=== PATIENT | male | born 1980 | race Two or more races ===

== ENCOUNTER 2025-04-06 22:37 | Emergency (ER) | payer MEDICAID, SELFPAY ==
[2025-04-06 22:40] VITALS: BMI 27.4
[2025-04-06 23:22] VITALS: BP 134/82; PULSE 65; RESP 18; TEMP 36.6; O2SAT 97
--- NOTE | 2025-04-06 23:26 | XR_ITS ---
EXAMINATION: PA lateral chest 2 views TECHNIQUE: Upright PA and lateral chest 2 views Date and time: April 06, 2025, 11:21 p.m. INDICATIONS: Chest pain radiating to the back with shortness of breath 4 days. FINDINGS: Early pneumonia left lower lobe Normal heart size The osseous structures are intact IMPRESSION: Early pneumonia left lower lobe
--- NOTE | 2025-04-06 23:27 | PD.EDRME ---
Rapid Medical Screening Exam RME Arrival date/time: 04/06/25 22:37 45-year-old male no cardiac history reports with complaints of chest pain that radiates to the back and shortness of breath x 4 days Chief Complaint: Chest Pain Time Seen by Provider: 04/06/25 22:45 Vital signs: Vital Signs Temperature 97.9 F 04/06/25 23:22 Pulse Rate 65 04/06/25 23:22 Respiratory Rate 18 04/06/25 23:22 Blood Pressure 134/82 H 04/06/25 23:22 Pulse Oximetry (%) 97 04/06/25 23:22 Oxygen Delivery Method Room Air 04/06/25 23:22 Exam: - Clinical Impression: -
[2025-04-06 23:48] LABS: Basophils # (Auto) 0.0 Thou/mm3 (0.0-0.2); Basophils % (Auto) 0 % (0-2.5); Eosinophils # (Auto) 0.1 Thou/mm3 (0.0-0.5); Eosinophils % (Auto) 2 % (0-10); Hematocrit 39.7 % (41.0-53.0); Hemoglobin 13.4 g/dL (13.5-16.0); Immature Granulocytes Auto 0.01 Thou/mm3 (0.00-0.00); Lymphocytes # (Auto) 3.1 Thou/mm3 (1.0-4.8); Lymphocytes % (Auto) 35 % (10-50); Mean Corpuscular HGB Conc 33.8 g/dl (31.0-37.0); Mean Corpuscular Hemoglobin 29.7 pg (25.0-35.0); Mean Corpuscular Volume 88 fL (80-100); Monocytes # (Auto) 0.7 Thou/mm3 (0.0-0.8); Monocytes % (Auto) 8 % (0-12); Neutrophils # (Auto) 5.0 Thou/mm3 (1.8-7.7); Neutrophils % (Auto) 56 % (37-80); Nucleated Red Blood Cell # 0.00 Thou/mm3 (0.00-0.00); Nucleated Red Blood Cell % 0 /100 WBC (0); Platelet Count 210 Thou/mm3 (140-440); RDW Standard Deviation 38.2 fL (35.1-43.9); Red Blood Count 4.51 Miln/mm3 (4.50-5.90); White Blood Count 9.0 Thou/mm3 (3.8-10.6)
[2025-04-07] VITALS (8 sets, daily range): BP systolic 107–127; BP diastolic 70–87; PULSE 53–64; RESP 13–20; TEMP 36.6–37; O2SAT 96–100
[2025-04-07 00:09] LABS: Alanine Aminotransferase 19 U/L (10-49); Albumin, Serum 4.7 gm/dL (3.5-5.0); Albumin/Globulin Ratio 1.3 (1.2-2.2); Alkaline Phosphatase 89 U/L (46-116); Anion Gap 10 (7-16); Aspartate Amino Transferase 22 U/L (0-34); BUN/Creatinine Ratio 20 Ratio (12-20); Bilirubin,Total 0.3 mg/dL (0.3-1.2); Blood Urea Nitrogen 16 mg/dL (9-23); Calcium 9.4 mg/dL (8.3-10.6); Calcium (Corrected) 9.4 mg/dL (8.5-10.1); Carbon Dioxide 30.4 mMol/L (20.0-31.0); Chloride 104 mMol/L (98-107); Creatinine (Component) 0.8 mg/dL (0.6-1.3); Estimated Creatinine Clearance 114.0 mL/min (>60); Globulin 3.6 gm/dL (2.3-3.5); Glucose 82 mg/dL (74-106); Osmolality,Calculated 287 (275-295); Potassium 3.6 mMol/L (3.4-5.1); Sodium 144 mMol/L (136-145); Total Protein 8.3 gm/dL (5.7-8.2); eGFR > 60 See Note
[2025-04-07 00:29] LABS: Troponin I 0.061 ng/mL (0.0-0.045)
--- NOTE | 2025-04-07 00:31 | EKG_ITS ---
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
--- NOTE | 2025-04-07 01:11 | PD.EDCHEST ---
ED Chest Pain RME/HPI General Chief Complaint: Chest Pain Stated Complaint: R LUNG PAIN Time Seen by Provider: 04/06/25 22:45 Arrival date/time: 04/06/25 22:37 RME / HPI RME / HPI narrative: 04/06/25 22:37 45-year-old male no cardiac history reports with complaints of chest pain that radiates to the back and shortness of breath x [address] Martinez?s Main ED Evaluation: 45yo male presenting with intermittent right parasternal chest pain with pleuritic component x 4 days. Denies shortness of breath, N/V, fever, or chills. Reports occasional recent cough. Nonsmoker, occasional alcohol use. No PSH. Cardiac Risk Factors: No DM, HTN, tobacco use, family history of heart disease, ?HLD. PE Risk Factors: No prolonged travel, HRT, recent surgery, prior personal or family history of PE/DVT, tobacco use. Related Data Previous Rx's ?Medication ?Instructions ?Recorded acetaminophen 300 mg-codeine 15 mg 1 tab PO Q8H PRN pain #14 tabs 04/07/25 tablet azithromycin 250 mg tablet 250 mg PO QDAY pneumonia 5 days #6 04/07/25 (Zithromax Z-Nelson) tabs indomethacin 25 mg capsule 25 mg PO TID #10 caps 04/07/25 Allergies Allergy/AdvReac Type Severity Reaction Status Date / Time NKA* Allergy Uncoded 04/06/25 22:44 Review of Systems Review of Systems Systems Reviewed: All systems reviewed, normal except as documented ED Exam Narrative Physical exam: GENERAL APPEARANCE: alert and oriented x 4, well-developed, well-nourished, nontoxic, complains of pleuritic chest pain, no acute distress VITALS: All vitals were reviewed and the pulse ox is 97% on room air, which is normal according to my interpretation. HEENT: Normocephalic, atraumatic; pupils equal, round, reactive to light; EOMI; mucous membranes pink, moist; oropharynx clear NECK: Supple CHEST: mild tenderness to the right parasternal region without crepitus or step-off; no friction rub LUNGS: CTABL; no wheezes, no rales, no rhonchi HEART: Regular rate, regular rhythm; normal S1, S2; no murmurs ABDOMEN: non distended; soft, no tenderness BACK: no CVA tenderness EXTREMITIES: atraumatic; no edema; no calf tenderness NEUROLOGIC: awake; alert and oriented x4; cranial nerves II-XII grossly intact; no focal sensory or motor deficits PSYCHIATRIC: appropriate mood and affect SKIN: warm, dry, normal color; no rashes Course Course Course Narrative: CXR is ordered for determining the etiology of chest pain. Quality Measures none Orders Category Date Time Status Bedside COVID-19 Antigen Test NOW Care 04/06/25 23:26 Active Bedside Influenza A&B Antigen Test NOW Care 04/06/25 23:27 Completed EKG (ED ONLY) *Do not use* NOW Care 04/07/25 00:31 Completed EKG (ED ONLY) *Do not use* NOW Care 04/07/25 02:01 Completed IV [Insert IV] NOW Care 04/07/25 00:42 Active EKG (ED Only) Stat Exams 04/07/25 00:31 Draft EKG (ED Only) Stat Exams 04/07/25 02:00 Draft XR chest 2V Stat Exams 04/06/25 23:26 Completed CBC Stat Lab 04/06/25 23:36 Completed CMP [Comprehensive Metabolic Panel] Stat Lab 04/06/25 23:36 Completed Troponin I Stat Lab 04/06/25 23:36 Completed Troponin I Stat Lab 04/07/25 00:36 Completed Ketorolac Inj [Toradol Inj] Med 04/07/25 01:28 Discontinued 30 mg IVP X1 ONE Vital Signs Vital signs: Vital Signs Temperature 97.9 F 04/06/25 23:22 Pulse Rate 65 04/06/25 23:22 Respiratory Rate 18 04/06/25 23:22 Blood Pressure 134/82 H 04/06/25 23:22 Pulse Oximetry (%) 97 04/06/25 23:22 Oxygen Delivery Method Room Air 04/06/25 23:22 Chest Pain MDM Narrative MDM Narrative:: Scribe Attestation: 04/07/25 Fallon Quach am scribing for and in the presence of Dr. Martinez. 45yo male presenting with intermittent right parasternal chest pain with pleuritic component x 4 days. Denies shortness of breath, N/V, fever, or chills. Reports occasional recent cough. Please see PE findings. Labs demonstrated normal WBC count. Chemistries are unremarkable. Troponin demonstrated marginal elevation, essentially unchanged during serial troponin analysis from 0.6 to 0.59. Serial EKGs were also performed and demonstrate equivocal ST segment elevation which appears to be nonspecific, no reciprocal ST depression, ventricular ectopy, ?NE depression in the lateral leads, suggestive of pleural pericarditis. Patient treated with IV fluid, antibiotics, and IV NSAID with marked overall improvement. Patient remained stable and without respiratory insufficiency. Will discuss with cardiology for final disposition. Discussed with child support agent, Dr. Quevedo, who agrees to come and evaluate the patient here in the ED later this morning. Patient data External records reviewed:: [facility] previous records (Per chart review, patient has no previous ED visits or admissions to this facility.) Clinical information provided by:: patient Social determinants that could affect healthcare access:: none Patient has the following chronic illnesses:: none How is presenting disease/condition affected by chronic disease/condition?: no chronic disease Evaluation data The following diagnostics were reviewed and interpreted by me:: lab results, radiology exam(s) and EKG tracing(s) Lab and/or radiology exams considered but not ordered:: none Interpretation Summary: EKG done at 0048, sinus rhythm, rate of 62, nonspecific ST segment elevation, no reciprocal ST segment depression, NE depression in the lateral leads, ?pericarditis, normal axis, normal intervals, according to my interpretation. Repeat EKG done at 0234, sinus bradycardia, rate of 52, nonspecific ST segment elevation diffusely, ?NE depression in the lateral leads, no reciprocal ST segment depression, no ectopy, normal axis, normal intervals, according to my interpretation. [facility] Report Signed Patient: MITESH MCLEOD. Record#: [id number] Birthdate: 1980 Age/Sex: 45 / M Location: [facility] Attending Dr: Ordering Physician: Maicol Cherry PA-C Date of Service: 04/06/25 Procedure(s): XR chest 2V Accession Number(s): [id number] cc: Ned Collins MD; Maicol Cherry PA-C~ EXAMINATION: PA lateral chest 2 views TECHNIQUE: Upright PA and lateral chest 2 views Date and time: April 06, 2025, 11:21 p.m. INDICATIONS: Chest pain radiating to the back with shortness of breath 4 days. FINDINGS: Early pneumonia left lower lobe Normal heart size The osseous structures are intact IMPRESSION: Early pneumonia left lower lobe Dictated By: Ned Collins MD Signed By: <Electronically signed by Ned Collins MD in OV> 04/06/25 3939 Medications / Prescriptions Medications or Prescriptions considered but not ordered:: none Medication administrations:: Medication Administration History Discontinued Medications Ketorolac Tromethamine (Ketorolac Inj 30 Mg/Ml Vial) 30 mg IVP X1 ONE Stop: 04/07/25 01:29 Last Admin: 04/07/25 01:40 Dose: 30 mg Documented By: CB see above Consultations Consultation(s) initiated? (list below): Yes Diagnosis Chest Pain Differential Diagnosis: atypical chest pain, st elevation myocardial infarction, costochondritis and other (NSTEMI, pericarditis) Most likely diagnosis given after review of the tests above:: see clinical impression below Admission Indicated Admission indicated?: not indicated Admission Request Was there a request for admission?: No Disposition Plan Disposition Plan: other (specify) (Signed out to Dr. Carlson at [address] Quevedo.) Discharge Plan Plan Patient Disposition: HOME (Self Care) Discharge Disposition comment: stable Prescriptions/Referrals Prescriptions/Med Rec: New indomethacin 25 mg capsule 25 mg PO TID Qty: 10 0RF Rx Instructions: administer with food or milk acetaminophen-codeine 300-15 mg tablet 1 tab PO Q8H PRN (Reason: pain) Qty: 14 0RF azithromycin [Zithromax Z-Nelson] 250 mg tablet 250 mg PO QDAY 5 Days Qty: 6 0RF Rx Instructions: 2 tablets day 1 and then 1 tablet day 2 through 5 Referrals: Hari Bennett MD [Primary Care Provider, Family Practice] - In 1 week Problem List Clinical Impression: Pneumonia, Pericarditis Impression comment: Left lower lobe pneumonia/pericarditis Patient/Caregiver Discharge Instructions Discharge Activity: activity as tolerated Other Activity Instructions:: Maintain adequate rest Education Materials: ED Pericarditis, ED Pneumonia (Adult) Additional Instructions: Maintain adequate rest. Medication as directed. Follow-up with primary care/child support agent as indicated. Print Language: German Stand Alone Forms: [facility] Award Info., Patient Portal Info Letter
[2025-04-07] MEDS: KETOROLAC INJ 30 MG/ML VIAL IVP (01:40)
--- NOTE | 2025-04-07 02:00 | EKG_ITS ---
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
[2025-04-07 03:09] LABS: Troponin I 0.059 ng/mL (0.0-0.045)
--- NOTE | 2025-04-07 08:29 | ECHO_ITS ---
Patient Info Name: Floyd Jones Age: 45 years : 1980 Gender: Male Ht: 168 cm Wt: 77 kg BSA: 1.91 m2 BP: 124 / 83 mmHg HR: 63 bpm Exam Date: 04/07/2025 8:58 AM Admit Date: 04/06/2025 Site: Room Number: ER Patient Status: E Exam Type: CA echo doppler complete Credit Rating Inspector: Varsha Cali Ordering Physician: Cortney Samson Study Info Indications R/O Pericarditis - Primary Location: SERX Left Ventricular Outflow Tract Name Value Normal LVOT 2D LVOT Diameter 2.0 cm LVOT Doppler LVOT Peak Velocity 95 cm/s LVOT Mean Gradient 2 mmHg LVOT VTI 19 cm LVOT VTI/AV VTI Ratio 0.6 LVOT Stroke Volume 60 ml Pulmonic Valve Name Value Normal PV Doppler PV Peak Velocity 107 cm/s PV Regurgitation Doppler VA Peak End Diastolic Velocity 87 cm/s Mitral Valve Name Value Normal MV Doppler MV Decel [place] 295 cm/s2 MV PHT 58 ms MV Area (PHT) 3.8 cm2 4.0-5.0 MV Diastolic Function MV E Peak Velocity 59 cm/s MV A Peak Velocity 46 cm/s MV E/A 1.3 MV Annular TDI MV Septal e' Velocity 9.5 cm/s MV E/e' (Septal) 6.3 MV Lateral e' Velocity 13.4 cm/s MV E/e' (Lateral) 4.4 MV e' Average 11.43 cm/s MV E/e' (Average) 5.3 Tricuspid Valve Name Value Normal TV Regurgitation Doppler TR Peak Velocity 187 cm/s Estimated PAP/RSVP RA Pressure 3 mmHg <=5 PA Systolic Pressure 17 mmHg <36 RV Systolic Pressure 17 mmHg <36 TV Annular TDI TV Lateral Gertrude s' Velocity 10.7 cm/s >=9.5 Aortic Valve Name Value Normal AV 2D/MM AV Cusp Sep (MM) 1.9 cm AV Doppler AV Peak Velocity 122 cm/s AV Mean Gradient 3 mmHg AV VTI 31 cm AV Area (Cont Eq VTI) 2.0 cm2 >=3.0 AV Area (Cont Eq Francois) 2.4 cm2 AV DI (Francois) 0.78 AV Regurgitation 2D LVOT Area 3.1 cm2 Ventricles Name Value Normal LV Dimensions 2D/MM IVS Diastolic Thickness (2D) 0.7 cm 0.6-1.0 LVID Diastole (2D) 5.4 cm 4.2-5.8 LVIW Diastolic Thickness (2D) 0.9 cm 0.6-1.0 LVID Systole (2D) 3.8 cm 2.5-4.0 LVOT Diameter 2.0 cm LV Mass (2D Cubed) 154.97 g 88.00-224.00 LV Mass Index (2D Cubed) 81 g/m2 49-115 Relative Wall Thickness (2D) 0.33 <=0.42 IVS/LVIW Diastolic Thickness (2D) 0.78 0.00-1.50 LV Fractional Shortening/Ejection Fraction 2D/MM LV Fractional Shortening (2D) 30 % 25-43 LV EF (2D Teichholz) 56 % RV Dimensions 2D/MM TV Lateral Gertrude s' Velocity 10.7 cm/s >=9.5 Atria Name Value Normal LA Dimensions LA Volume (4C A-L) 25 ml LA Volume (BP A-L) 34 ml Left Ventricle Left ventricular chamber dimension is normal. Left ventricular systolic function is normal with visually estimated ejection fraction of 55-60%. There is normal geometry noted in the left ventricle. Left ventricular segmental wall motion is normal. There is normal diastolic function in the left ventricle. Right Ventricle Right ventricular chamber dimension is normal. Right ventricular systolic function is normal. Left Atrium Left atrial chamber dimension is normal. Right Atrium Right atrial chamber dimension is normal. Aortic Valve The aortic valve is trileaflet. There is no aortic valve sclerosis. There is no aortic valve stenosis with a peak velocity of 122 cm/s, mean gradient of 3 mmHg, and aortic valve area of 2.0 cm2. There is no aortic valve regurgitation. Pulmonic Valve The pulmonic valve is normal. There is no pulmonic valve stenosis. There is trace pulmonic regurgitation. Mitral Valve The mitral valve has normal leaflets. There is no mitral valve stenosis. There is trace mitral valve regurgitation. Tricuspid Valve The tricuspid valve leaflets are normal. There is no tricuspid valve stenosis. There is trace tricuspid valve regurgitation. No pulmonary hypertension, estimated pulmonary arterial systolic pressure is 17 mmHg and systemic blood pressure of 124 mmHg in systole. Pericardium/Pleural The pericardium appears normal. There is no pericardial effusion with no tamponade. No pleural effusion visualized. Inferior Vena Cava Normal inferior vena cava with >50% collapse upon inspiration consistent with normal right atrial pressure, 3 mmHg. Aorta The aortic measurements are indexed to age and body surface area. The aortic root at the sinus of Valsalva is not well visualized. The prox ascending aorta is not well visualized. Summary 1. Left ventricle size is normal and systolic function is normal. Estimated ejection fraction is 55-60%. There is normal diastolic function. 2. Right ventricle chamber size is normal and systolic function is normal. Estimated RVSP is 17 mmHg. 3. There is trace MR, TR and PI. Normal LA and RA size. 4. Normal IVC with estimated RA pressure 3 mmHg. No pericardial effusion. Report Signatures Finalized by Yoni Quevedo on 04/07/2025 10:47 AM
--- NOTE | 2025-04-07 08:35 | PD.RESCONSUL ---
HPI Data of Consult Patient: new to practice Consult date: 04/07/25 Requesting Physician: Carson Carlson MD Attending Provider: Yoni Quevedo MD Primary Care Provider: Hari Bennett MD Consult Narrative Reason for consult: Possible Pericarditis History of present illness: Mr. Jones is a 45-year-old male with no significant past medical history who presented to [facility] emergency department today with a chief complaint of chest pain. Patient complains of retrosternal chest pain for the last 4 days, sudden in onset, nonprogressive, associated with breathing, reports that it improves with leaning forward, nonreproducible. Patient complains of upper respiratory infection associated with some shortness of breath and cough since the last 7 days which has relatively resolved. Patient denies any similar episodes in the past, denies any palpitations, syncope, presyncope, leg swelling, dizziness and falls. Patient denies any fevers, chills, nausea, vomiting, diarrhea and headache. No sick contacts. ED workup: On presentation in ED patient's blood pressure 130/82, heart rate 65, respiratory rate 18, temp 97.9, O2 sat 97 on room air. Labs in ER pertinent for hemoglobin 13.4, hematocrit 39.7, sodium 144, potassium 3.6, chloride 194, bicarb 30.4, BUN 16, creatinine 0.8, GFR greater than 60, glucose 82, calcium 9.4, AST ALT alk phos within normal limits. Initial troponin obtained at 1130 was 0.061, total protein 8.3 globulin 3.6. Chest x-ray obtained in ER shows early pneumonia left lower lobe, EKG obtained shows sinus rhythm, nonspecific ST changes noted, some ST elevation noted in V3, V4, no TN depression, no reciprocal changes noted. Repeat EKG around 2 AM shows sinus bradycardia, rate 52, nonspecific ST elevation noted in V2 V3 V4, less than 0.5 mm, no reciprocal changes. Patient was given Toradol 30 mg IV push x 1 in the ER. Cardiology consulted for possible pericarditis. cc:: cc: Review of Systems Review of Systems Systems Reviewed: All systems reviewed, normal except as documented Past Medical History Past Medical History Comments PMH COMMENT: PMH: No significant past medical history PSHx: Denies Allergies: NKDFA Social history: No recent travel, born in [place], no sick contacts. 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 Conversational and non-toxic appearing. HEENT: Normocephalic, atraumatic, mucous membranes moist. Heart: Regular rate and rhythm, no murmurs. Lungs: Clear to auscultation with no wheezing or crackles. Abdomen: Soft, nondistended, nontender, positive bowel sounds. ?No guarding or rebound tenderness. Neurologic: Alert and oriented x3, no gross neurological deficit, and patient able to move all 4 extremities. Extremities: No edema. Skin: No rash or ecchymoses. Results Labs 04/06/25 23:36 04/06/25 23:36 Labs: Short CBC 04/06/25 Range/Units 23:36 WBC 9.0 (3.8-10.6) Thou/mm3 Hgb 13.4 L (13.5-16.0) g/dL Hct 39.7 L (41.0-53.0) % Plt Count 210 (140-440) Thou/mm3 BMP 04/06/25 23:36 Sodium 144 Potassium 3.6 Chloride 104 Carbon Dioxide 30.4 BUN 16 Creatinine 0.8 Glucose 82 Calcium 9.4 Cardiac Enzymes 04/06/25 04/07/25 Range/Units 23:36 00:36 Troponin I 0.061 H* 0.059 H* (0.0-0.045) ng/mL Liver Function 04/06/25 Range/Units 23:36 Total Bilirubin 0.3 (0.3-1.2) mg/dL AST 22 (0-34) U/L ALT 19 (10-49) U/L Alkaline Phosphatase 89 (46-116) U/L Albumin 4.7 (3.5-5.0) gm/dL Quality Measures Quality Measures none Medications Home Medications and Allergies Allergies Allergy/AdvReac Type Severity Reaction Status Date / Time NKA* Allergy Uncoded 04/06/25 22:44 Visit Medications Ibuprofen (Ibuprofen Tab 600 Mg Tablet) 600 mg PO Q8HR [facility] Stop: 05/07/25 08:34 Pantoprazole Sodium (Pantoprazole 40 Mg Tablet) 40 mg PO QDAY [facility] Stop: 05/07/25 08:59 Discontinued Medications Ketorolac Tromethamine (Ketorolac Inj 30 Mg/Ml Vial) 30 mg IVP X1 ONE Stop: 04/07/25 01:29 Last Admin: 04/07/25 01:40 Dose: 30 mg Assessment & Plan Plan Assessment and Plan: Summary: Mr. Jones is a 45-year-old male with no significant past medical history who presented to [facility] emergency department today with a chief complaint of chest pain. Patient noted to have minimal troponin elevation, nonspecific ST changes on EKG and cardiology consulted for possible pericarditis. #Chest pain #Possible Pericarditis complains of retrosternal chest pain for the last 4 days, sudden in onset, non-progressive, associated with breathing, reports that it improves with leaning forward, non-reproducible, reports recent URI about 7 days ago, symptoms have resolved. Patient denies any similar episodes in the past, denies any palpitations, syncope, presyncope, leg swelling, dizziness and falls. Patient denies any fevers, chills, nausea, vomiting, diarrhea and headache. No sick contacts. No pertinent CAD risk factors, no hypertension, hyperlipidemia, diabetes mellitus, thyroid problems, obesity, significant family history of heart disease, non-smoker, no heavy alcohol use. EKG obtained shows sinus rhythm, nonspecific ST changes noted, some ST elevation noted in V3, V4, no TN depression, no reciprocal changes noted. Repeat EKG around 2 AM shows sinus bradycardia, rate 52, nonspecific ST elevation noted in V2 V3 V4, less than 0.5 mm, no reciprocal changes. Initial troponin obtained at 1130 was 0.061, which downtrended to 0.059. Patient's pain improved with IV Toradol. ESR, CRP obtained within normal limits, D-dimer within normal limits. HIV negative, cocci IgM negative Other labs ordered: KUNAL screen, CCP, rheumatoid factor, cocci IgG?pending Echocardiogram obtained in ER showed 1. Left ventricle size is normal and systolic function is normal. Estimated ejection fraction is 55-60%. There is normal diastolic function. 2. Right ventricle chamber size is normal and systolic function is normal. Estimated RVSP is 17 mmHg. 3. There is trace MR, TR and PI. Normal LA and RA size. 4. Normal IVC with estimated RA pressure 3 mmHg. No pericardial effusion. Chest CTA obtained to rule out PE, CTA chest negative. Plan: - Patient's clinical presentation does indicate possible pericarditis, did have recent upper respiratory infection possibly viral. - Patient does not need hospitalization currently, no fever, no leukocytosis, no large effusion on echo, not on anticoagulation, no trauma, clinically stable. Minimally elevated troponin. - Patient can be discharged on ibuprofen 800 mg 3 times daily for 7 days along with Protonix 40 mg twice daily. - Will follow-up in cardiology clinic within 1 week, follow-up labs. Thank you for the consult and allowing to participate in the care of the patient. Cardiology will continue to follow. Case discussed with Attending Physician Dr. Yoni Samson MD Internal Medicine PGY-2 Disclaimer: This note was dictated by speech recognition. Minor errors in coffee sommelier may be present due to voice recognition software. Attending Provider Attestation/Addendum I reviewed the resident Cortney Samson consultation progress note and agree with the resident findings and plan in the note above and have also edited the documentation to reflect my findings and plan. Yoni Quevedo M.D. Interventional Cardiology
[2025-04-07] MEDS: PANTOPRAZOLE 40 MG TABLET PO (08:42)
[2025-04-07] MEDS: IBUPROFEN TAB 600 MG TABLET PO ×2 (08:42→14:44)
[2025-04-07 09:10] LABS: Sed Rate (ESR) 10 mm/hr (0-15)
[2025-04-07 09:45] LABS: C-Reactive Protein < 0.5 mg/dL (0.0-0.9)
[2025-04-07 09:46] LABS: HIV (1&2) Antibody Rapid Non-Reactive
--- NOTE | 2025-04-07 10:30 | XR_ITS ---
Examination: CTA chest with intravenous contrast 2-D reconstructions 3-D reconstructions, vascular Date and time of exam: April 07, 2025, 1208 hours INDICATIONS: Chest pain shortness of breath beginning 5 days ago CTDI: vol (mGy) 15 DLP: (mGycm) 347 Technique: Multiple axial sections of the thorax have been obtained. 3 mm slice thickness, from below the hemidiaphragms to above the apices of the lungs. Mediastinal and lung density settings have been obtained. 2-D sagittal and coronal reconstructions. 3-D angiographic renderings, 3-D volume renderings, 3D post processing, vascular maximum intensity projections obtained. Contrast administered is 100 cc [id number]. Low dose protocols were performed. One or more of the following dose reduction techniques were used; automated exposure control, adjustment of the mA and/or KV according to patient size, use of iterative reconstruction technique. Findings: No thoracic aortic aneurysmal dilatation or dissection No pulmonary artery filling defects No paratracheal tracheobronchial or bronchopulmonary adenopathy No pneumonia or pulmonary edema No visualized liver or splenic lesion No gallstones No pancreatic or adrenal mass IMPRESSION: Negative for pulmonary artery emboli No thoracic aortic aneurysm dilatation or dissection No pneumonia or pulmonary edema or pleural disease
[2025-04-07 11:23] LABS: D-Dimer < 250 ng/mL (<600)
[2025-04-07 13:52] LABS: Cocci Serology, IgM Negative (Negative)
[2025-04-08 11:03] LABS: Cocci Serology, IgG Negative (Negative)
[2025-04-13 06:44] LABS: CCP Antibody (IgG)* <16 Units; Rheumatoid Factor* <10 IU/mL (<14)
[2025-04-13 06:46] LABS: ANA Pattern CYTOPLASMIC; ANA Screen, IFA POSITIVE (NEGATIVE); ANA Titer 1:80 titer
== END 2025-04-07 15:34 | disposition home or self-care (01) ==
PROVIDERS: Physician Assistant; Emergency Provider Emergency Medicine; PCP Family Medicine
DX: J18.9 Pneumonia, unspecified organism (principal); I31.9 Disease of pericardium, unspecified; R00.1 Bradycardia, unspecified
CPT/HCPCS: 36415; 71046; 71275; 80053; 84484; 85025; 85379; 85652; 86038; 86039; 86140; 86200; 86331; 86431; 86635; 86703; 87502; 87635; 93005; 93306; 96374; 99284; A4649; J1885; Q9967; A9270